=== PATIENT | male | born 1970 | race Caucasian/White ===

== ENCOUNTER → 2020-12-16 16:46 | Outpatient (CLI) | payer BC, SELFPAY ==
--- NOTE | 2020-12-16 16:48 | DI.RAD.S_ITS ---
PROCEDURE: XR CHEST 2V INDICATIONS: cough TECHNIQUE: 2 views of the chest were acquired. COMPARISON: None. FINDINGS: Surgical changes and devices: None. Lungs and pleura: Increased bronchovascular markings in bilateral hilar region are seen with mild bronchial wall thickening more prominent on the right side. No focal infiltrate.. No pleural effusions or pneumothorax. Mediastinum: Mediastinal contours are normal. Heart size is normal. Bones and chest wall: No suspicious bony abnormalities. Soft tissues appear unremarkable. IMPRESSION: Suggestion of mild reactive airway disease. No focal infiltrate. Dictated by: Miles Floyd M.D. on 12/16/2020 at 16:52 Approved by: Miles Floyd M.D. on 12/16/2020 at 16:52
== END ==
PROVIDERS: Family Provider Family Medicine; PCP Internal Medicine; Referring Provider Internal Medicine; Visit Provider Internal Medicine
DX: R05 Cough (principal); J45.909 Unspecified asthma, uncomplicated
CPT/HCPCS: 71046